=== PATIENT | female | born 1975 | race Asian ===

== ENCOUNTER 2018-05-18 09:37 | Emergency (ER) | payer BC ==
[2018-05-18 09:44] VITALS: BP 107/73
--- NOTE | 2018-05-18 10:10 | EDPHY ---
H & P Stated Complaint: R lower arm pain after fall 3 days ago. Time Seen by Provider: 05/18/18 10:09 HPI/ROS: HPI: This is a 42-year-old female who presents with Chief Complaint: R lower arm pain after fall 3 days ago. Location: Right lower arm Quality: Injury/pain Duration: 3 days ago Signs and Symptoms: No bleeding, no radiation, no numbness, no weakness, no tingling, no incontinence, no decreased range of motion, no swelling, + pain, no fever Timing: Acute Severity: Mild Context: Patient is right-hand dominant, presents with hiking 3 days ago and accidentally tripping and falling and hurting her right wrist. She does not remember the exact mechanism it injury. She reports that she "felt some pain " at the time but continued to hike. She reports that 3 days later certain movements cause pain in the volar aspect of her wrist. She denies any decreased range of motion, numbness, radiation, weakness. Denies LOC/head injury/neck pain/dizziness/nausea/vomiting/amnesia. Modifying Factors: Comment: ROS: A comprehensive 10 system review of systems is otherwise negative aside from elements mentioned in the history of present illness. MEDICAL/SURGICAL/SOCIAL HISTORY: Medical history: Generally healthy. Does not take any regular medications. LMP 2-3 weeks ago. Surgical history: C section Social history: Never smoked. CONSTITUTIONAL: Well of well-developed, well-nourished middle-aged female , awake and alert, no obvious distress HEENT: Atraumatic and normocephalic. NECK: supple, no midline tenderness, flexion 45 degrees, extension 45 degrees, right and left lateral flexion 45 degrees. No meningismus. Cardiovascular: Normal S1/S2, regular rate, regular rhythm, without murmur rub or gallop. PULMONARY/CHEST: Symmetrical and nontender. no crepitus. Clear to auscultation bilaterally. Good air movement. No accessory muscle usage. ABDOMEN: Soft, nondistended, nontender, no ecchymosis. PELVIC: no pain with rocking; bilateral hips flexion 125 degrees, extension 30 degrees, with no pain internal rotation and no pain external rotation. BACK: No midline tenderness, no paraspinous spasm, deep tendon reflexes 2/2, no pain with straight leg raise, No foot drop. Achilles reflexes are equal bilaterally. Able to walk on heels and toes without difficulty. EXTREMITIES: 2/2 pulses, strength 5/5, right WRIST: Extension to 70, flexion to 80, radial deviation to 20 degree, ulnar deviation to 30, no scaphoid tenderness, no tenderness over ulnar styloid, no tenderness over radial styloid , no pain with Michael test, no pain with Phalen test, no pain with Tinel test DIP/PIP/MCP flexion/extension intact with good light touch sensation. no deformities, no clubbing, no cyanosis or edema. NEUROLOGICAL: no focal neuro deficits. GCS 15. Light touch sensation intact. SKIN: Warm and dry, no erythema. no rash. Good capillary refill. Source: Patient Exam Limitations: No limitations - Personal History LMP (Females 10-55): 15-21 Days Ago Current Tetanus/Diphtheria Vaccine: Unsure Current Tetanus Diphtheria and Acellular Pertussis (TDAP): Unsure - Medical/Surgical History Hx Asthma: No Hx Chronic Respiratory Disease: No Hx Diabetes: No Hx Cardiac Disease: No Hx Renal Disease: No Hx Cirrhosis: No Hx Alcoholism: No Hx HIV/AIDS: No Hx Splenectomy or Spleen Trauma: No Other PMH: , - Social History Smoking Status: Never smoked Constitutional: Initial Vital Signs Temperature (C) 36.8 C 05/18/18 09:41 Heart Rate 71 05/18/18 09:41 Respiratory Rate 16 05/18/18 09:41 Blood Pressure 107/73 05/18/18 09:41 O2 Sat (%) 99 05/18/18 09:41 O2 Delivery Mode Room Air Allergies/Adverse Reactions: cat dander Allergy (Intermediate, Verified 05/18/18 09:40) Dyspnea Home Medications: Medication Instructions Recorded NK [No Known Home Meds] 05/18/18 Medical Decision Making - Diagnostics Imaging Results: Imaging Impressions Wrist X-Ray 05/18/18 10:13 Impression: Negative for fracture. Procedures: Procedure: Splint placement. A right Velcro volar wrist splint was applied. After application of the splint I returned and re-examined the patient. The splint was adequately immobilizing the joint and distal to the splint the patient's circulation and sensation was intact. ED Course/Re-evaluation: Vital signs reviewed and stable upon arrival. Right wrist x-ray ordered and my read via PAC shows no matti fracture, dislocation Suspect sprain Placed in Velcro volar wrist splint No signs of neurovascular compromise/tenting of skin/compartment syndrome/ extremities and joints examined above and below area of concern and are neurovascularly intact. This patient was seen under the supervision of my secondary supervising physician. I evaluated care for this patient independently. Discussed this patient with Dr. Sevilla who did not see the patient. Differential Diagnosis: Differential diagnosis includes but is not limited to sprain, contusion, radial fracture, ulnar fracture, scaphoid fracture. Departure - Departure Disposition: Home, Routine, Self-Care Clinical Impression: Sprain and strain of right wrist Condition: Good Instructions: Splint Care (ED), Wrist Sprain (ED) Additional Instructions: Wear the splint while out of bed until pain free or seen by Orthopedics. Take Tylenol 650 mg every 4 hours and/or Ibuprofen 600 mg every 8 hours with food as needed for pain. Apply ice for 30 minutes at a time; 2-3 times per day for the next 1-2 days. Follow up with Orthopedics in 7-10 days if symptoms persist at which time they will evaluate and recommend with you if conservative management versus further imaging is indicated. The x-rays obtained in the emergency department today demonstrate no evidence of an obvious fracture. Sometimes fractures are not obvious on the initial set of x-rays performed in the ED. For this reason, you should have repeat x-rays performed in 7-10 days if you are having any pain exclude the possibility of an occult fracture. Referrals: RONALD ORTIZ [Other] - As per Instructions Luis Alfredo Dewey MD [Medical Doctor] - As per Instructions
== END 2018-05-18 10:44 | disposition home or self-care (01) ==
DX: S63.501A Unspecified sprain of right wrist, initial encounter (principal); W01.198A Fall on same level from slipping, tripping and stumbling with subsequent striking against other object, initial encounter; Y93.01 Activity, walking, marching and hiking; Y92.828 Other wilderness area as the place of occurrence of the external cause
CPT/HCPCS: L3984